=== PATIENT | female | born 1970 | race Caucasian/White ===

== ENCOUNTER 2016-07-15 18:46 | Emergency (ER) ==
[2016-07-15 18:54] VITALS: BP 142/91; TEMP 97; BMI 40.3
--- NOTE | 2016-07-15 19:48 | ED.PDOC ---
General ED Provider: Dr. MARITZA LAM-ER Chief Complaint: Foot Pain/Injury Stated Complaint: my foot has hurt for mos Time Seen by Physician: 19:46 Mode of Arrival: Walk-In Information Source: Patient Exam Limitations: No limitations Nursing and Triage Documentation Reviewed and Agree: Yes Musculoskeletal Complaint Exam - Ankle/Foot Complaint/Exam Location of Injury: Reports: Left, Foot Mechanism of Injury: Reports: No known trauma Onset/Duration: 6mos Symptoms Are: Reports: Still present Onset of Pain: Reports: Immediate Initial Severity: Mild Current Severity: Mild Location: Reports: Discrete (left foot) Character: Reports: Dull, Aching Alleviating: Reports: None Aggravating: Reports: Weight bearing, Prolonged standing Able to Bear Weight: No Associated Signs and Symptoms: Denies: Swelling, Redness, Bruising, Fever, Weakness, Numbness, Tingling Related History: Reports: Similar episode Gout Risk Factors: Reports: None Related Surgical History: Reports: None Lower Extremity Findings: Present: Tenderness Achilles Tendon Abnormality: No Tenderness: Present: Lateral malleolus Differential Diagnosis: Closed Fracture Review of Systems - Review Of Systems Constitutional: Reports: No symptoms Eyes: Reports: No symptoms Ears, Nose, Mouth, Throat: Reports: No symptoms Respiratory: Reports: No symptoms Cardiac: Reports: No symptoms GI: Reports: No symptoms : Reports: No symptoms Musculoskeletal: Reports: No symptoms Skin: Reports: No symptoms Neurological: Reports: No symptoms Endocrine: Reports: No symptoms Hematologic/Lymphatic: Reports: No symptoms All Other Systems: Reviewed and Negative Past Medical History - Past Medical History Previously Healthy: Yes Endocrine: Reports: None, Hypothyroid Cardiovascular: Reports: None Respiratory: Reports: None Hematological: Reports: None Gastrointestinal: Reports: None Genitourinary: Reports: None Neuro/Psych: Reports: None Musculoskeletal: Reports: Arthritis, Back Pain, Joint Pain Cancer: Reports: None Last Menstrual Period: 2007 Other Pertinent Past Medical History: HYSTERECTOMY, RIGHT KNEE, RIGTH ARM, GALLBLADDER, TONSILS THYROID - Surgical History General Surgical History: Reports: None, Hysterectomy, Cholecystectomy, Tonsillectomy, Orthopedic (RIGHT KNEE, RIGTH ARM) - Family History Family History: Reports: None - Social History Smoking Status: Current some day smoker Hx Substance Use: No Alcohol Screening: None Lives: With family - Immunizations Tetanus Shot up to Date: Yes Physical Exam - Physical Exam Appearance: Well-appearing, No pain distress, Well-nourished Pain Distress: Mild Eyes: PRADEEP, EOMI, Conjunctiva clear ENT: Ears normal, Nose normal, Oropharynx normal Neck: Supple Respiratory: Airway patent, Breath sounds clear, Breath sounds equal, Respirations nonlabored Cardiovascular: RRR GI/: Soft, Nontender, No masses, Bowel sounds normal, No Organomegaly Musculoskeletal: Normal strength, ROM intact, No edema, No calf tenderness Skin: Warm, Dry, Normal color Neurological: Sensation intact, Motor intact, Reflexes intact, Cranial nerves intact, Alert, Oriented Psychiatric: Affect appropriate, Mood appropriate Critical Care Note - Critical Care Note Total Time (mins): 0 Course - Course Orders, Labs, Meds: Orders Category Date Time Status FOOT, LEFT 3 VIEWS Stat RADS 07/15/16 19:02 Taken Vital Signs: Temp Pulse Resp BP Pulse Ox 07/15/16 18:47 97 F L 80 20 142/91 H 97 Departure - Departure Time of Disposition: 19:53 Disposition: HOME SELF-CARE Discharge Problem: Chronic foot pain Qualifiers: Laterality: unspecified laterality Qualifier Code: (M79.673) Pain in unspecified foot Instructions: Foot Sprain (ED) Condition: Good Pt referred to PMD for follow-up: Yes Additional Instructions: i suggest going to the orthopedic walk in clinic for further testing, walking boot etc(since you decline crutches today) Allergies/Adverse Reactions: Allergies No Known Allergies Allergy (Verified 07/15/16 18:56) Home Medications: Ambulatory Orders Levothyroxine Sodium [Synthroid] 25 mcg PO DAILY 07/15/16 Disposition Discussed With: Patient
--- NOTE | 2016-07-15 19:58 | DI ---
EXAM: Left foot; PA, lateral, and oblique views HISTORY: Chronic foot pain. COMPARISON: 04/18/2016 FINDINGS: There is no acute fracture or dislocation. A moderate hallux valgus is present with hallux angle measuring approximate 30 degrees. There is mild osteoarthritis at the first MTP joint with j oint space narrowing and marginal osteophytosis. A small plantar enthesiophyte is present. OPINION: No acute osseous abnormality of the foot. Moderate hallux valgus with mild first MTP joint osteoarthritis.
== END 2016-07-15 20:30 | disposition home or self-care (01) ==
LOC: ED 18:46
DX: M79.672 Pain in left foot (principal); F17.210 Nicotine dependence, cigarettes, uncomplicated; G89.29 Other chronic pain
CPT/HCPCS: 99282

== ENCOUNTER 2016-12-20 15:28 | Emergency (ER) ==
[2016-12-20 15:35] VITALS: BP 120/83; TEMP 97.2; BMI 39.4
--- NOTE | 2016-12-20 15:40 | ED.PDOC ---
General ED Provider: Dr. ELLA LAUREN JR Chief Complaint: Tooth Problem Stated Complaint: c/o pain left lower back tooth (molar)[End]3 DAYS AGO 97.2 68 20 97 120/83 01/11 HAS NOT BEEN IN TO SEE PMD REQUEST REFILL THYROID Time Seen by Physician: 15:39 Mode of Arrival: Walk-In Information Source: Patient Exam Limitations: No limitations Nursing and Triage Documentation Reviewed and Agree: No Review of Systems - Review Of Systems Constitutional: Reports: No symptoms, Malaise, Weakness Eyes: Reports: No symptoms Ears, Nose, Mouth, Throat: Reports: Mouth pain All Other Systems: Other Past Medical History - Past Medical History Previously Healthy: Yes Endocrine: Reports: None, Hypothyroid Cardiovascular: Reports: None Respiratory: Reports: None Hematological: Reports: None Gastrointestinal: Reports: None Genitourinary: Reports: None Neuro/Psych: Reports: None Musculoskeletal: Reports: Arthritis, Back Pain, Joint Pain Cancer: Reports: None Last Menstrual Period: 2005 - Surgical History General Surgical History: Reports: None, Hysterectomy, Cholecystectomy, Tonsillectomy, Orthopedic (RIGHT KNEE, RIGTH ARM;RIGHT KNEE SCOPE), Other ( THYROID) - Family History Family History: Reports: None - Social History Smoking Status: Current every day smoker Hx Substance Use: No Alcohol Screening: None - Immunizations Tetanus Shot up to Date: Yes Physical Exam - Physical Exam Appearance: Obese Ill-appearing: Moderate Pain Distress: Moderate Eyes: PRADEEP, EOMI, Conjunctiva clear ENT: Oropharynx normal (LEFT FIRST MOLAR TENDER WITH FOUL TASTE) Neck: Supple Respiratory: Airway patent, Breath sounds clear, Breath sounds equal, Respirations nonlabored Cardiovascular: RRR, Pulses normal, No rub, No murmur Critical Care Note - Critical Care Note Total Time (mins): 0 Course - Course Vital Signs: Temp Pulse Resp BP Pulse Ox 12/20/16 15:28 97.2 F L 68 20 120/83 97 Departure - Departure Time of Disposition: 15:47 Disposition: HOME SELF-CARE Discharge Problem: Toothache Hypothyroid Qualifiers: Hypothyroidism type: unspecified Qualifier Code: (E03.9) Hypothyroidism, unspecified Instructions: Subclinical Hypothyroidism (ED), Toothache (ED) Condition: Good Pt referred to PMD for follow-up: Yes (FOLLOW UP DENTIST FOLLWO UP PMD FOR THYROID) Additional Instructions: FOLLOW UP DENTIST FOLLOW UP PMD FOR THYROID RYAN VK FOR INFECTION NAPROXEN FOR PAIN ONE TIME DOSE OF THYROID REPLACEMENT Prescriptions: Naproxen [Naprosyn] 500 mg PO Q12HR PRN #30 tablet PRN Reason: PAIN Levothyroxine Sodium [Synthroid] 25 mcg PO QDAC #30 tablet Penicillin V Potassium 500 mg PO QID #28 tablet Allergies/Adverse Reactions: Allergies No Known Allergies Allergy (Verified 12/20/16 15:33) Home Medications: Ambulatory Orders Levothyroxine Sodium [Synthroid] 25 mcg PO DAILY 07/15/16 Levothyroxine Sodium [Synthroid] 25 mcg PO QDAC #30 tablet 12/20/16 Naproxen [Naprosyn] 500 mg PO Q12HR PRN #30 tablet 12/20/16 Penicillin V Potassium 500 mg PO QID #28 tablet 12/20/16
== END 2016-12-20 16:07 | disposition home or self-care (01) ==
LOC: ED 15:28
DX: K08.89 Other specified disorders of teeth and supporting structures (principal); E03.9 Hypothyroidism, unspecified; F17.210 Nicotine dependence, cigarettes, uncomplicated; Z79.899 Other long term (current) drug therapy
CPT/HCPCS: 99282

== ENCOUNTER 2017-02-19 12:32 | Outpatient (CLI) ==
[2017-02-19 12:43] LABS: BASOPHILS # (AUTO) 0.1 K/uL (0-0.2); BASOPHILS % (AUTO) 1.1 % (0.0-3.0); EOSINOPHILS # (AUTO) 0.3 K/ul (0.0-0.7); EOSINOPHILS % (AUTO) 4.4 % (0.0-7.0); HEMATOCRIT 39.5 % (37.0-47.0); HEMOGLOBIN 13.3 g/dl (12.0-16.0); IMMATURE GRANULOCYTE % (AUTO) 0.1 % (0.0-5.0); LYMPHOCYTES # (AUTO) 2.9 K/uL (0.60-3.4); LYMPHOCYTES % (AUTO) 38.2 (10.0-50.0); MEAN CORPUSCULAR HEMOGLOBIN 29.8 pg (27.0-31.0); MEAN CORPUSCULAR HGB CONC 33.7 (31.8-35.4); MEAN CORPUSCULAR VOLUME 88.6 fl (81.0-99.0); MONOCYTES # (AUTO) 0.4 K/uL (0.4-2.0); MONOCYTES % (AUTO) 4.7 (0-10); NEUTROPHILS # (AUTO) 3.9 K/ul (2.0-6.9); NEUTROPHILS % (AUTO) 51.5; PLATELET COUNT 284 10^3/uL (140-440); RED BLOOD COUNT 4.46 10^6/ul (4.20-5.40); WHITE BLOOD COUNT 7.48 K/ul (4.6-10.2)
[2017-02-19 13:16] LABS: ALBUMIN 3.4 g/dL (3.4-5.0); ALBUMIN/GLOBULIN RATIO 0.85; ANION GAP 12.2; BILIRUBIN,TOTAL 0.34 mg/dL (0.00-1.20); BUN/CREATININE RATIO 24.73; CALCIUM 8.7 mg/dL (8.2-10.2); CHOL/HDL RATIO 3.3 (4.5-5.5); CREATININE 0.93 mg/dL (0.60-1.30); POTASSIUM 4.2 mmol/L (3.5-5.10); TOTAL PROTEIN 7.4 g/dL (6.4-8.2)
== END 2017-02-19 12:33 | disposition home or self-care (01) ==
LOC: LAB 12:32
PROVIDERS: ATTEND Nurse Practitioner Family
DX: F32.9 Major depressive disorder, single episode, unspecified (principal); K21.9 Gastro-esophageal reflux disease without esophagitis
CPT/HCPCS: 36415; 80053; 80061; 84443; 85025

== ENCOUNTER 2017-04-14 18:49 | Outpatient (CLI) | END 2017-04-14 18:50 | disposition home or self-care (01) | LOC: LAB 18:49 | PROVIDERS: ATTEND Nurse Practitioner Family | DX: E03.9 Hypothyroidism, unspecified (principal) | CPT/HCPCS: 36415; 84443 ==

== ENCOUNTER 2017-04-27 11:45 | Outpatient (CLI) ==
--- NOTE | 2017-04-27 12:37 | US ---
EXAM: Thyroid ultrasound History: Hypothyroidism. Comparison: Thyroid ultrasound 08/10/2012 Technique: Multiple sonographic images through the thyroid gland were obtained. Color duplex Dopple r was used to interrogate vascular flow. Findings: The right lobe of the thyroid measures 5.3 cm x 2.3 cm x 2.6 cm and demonstrates heterogeneous echote xture with a 1.3 cm complex nodule that is not significantly changed. The thyroid isthmus measures 1.2 cm in thickness. The left lobe of the thyroid measures 5.4 cm x 2.5 cm x 2.4 cm and demonstrates heterogeneous echotex ture with a 1.6 cm complex nodule that is not significantly changed. The thyroid gland is not significantly hypervascular. There is a 0.8 cm subcutaneous soft tissue nodu le within the right side of the neck that is probably a sebaceous cyst. Impression: Enlarged heterogeneous thyroid gland with stable nodules not significantly changed in oscar earance compared to the prior study. A sebaceous cyst within the right neck.
--- NOTE | 2017-04-27 13:11 | DI ---
EXAM: Two views of the chest. History: Short of breath Comparison: Chest CT 06/27/2011 Findings: Heart size is within normal limits. No focal consolidation. No appreciable pleural fluid and no pneumothorax. No acute osseous abnormalities. There are calcifications seen projecting over the abdomen on the lateral view which are nonspecific. Impression: No acute cardiopulmonary process.
--- NOTE | 2017-04-28 08:10 | US ---
Examination: Bilateral extremity venous Doppler including venous insufficiency testing HISTORY: Bilateral lower extremity swelling and pain. COMPARISON: None. TECHNIQUE: Multiple sonographic images were obtained of the bilateral lower extremity deep and super ficial venous systems including Doppler analysis was well as analysis with compression, augmentation, and reflux interrogation. FINDINGS: There is no evidence of deep venous thrombosis in the visualized common femoral, profunda femoral, fe moral, or popliteal veins bilaterally. RIGHT LOWER EXTREMITY Right Greater Saphenous Vein: Measures 0.9 cm at the saphenofemoral junction, 0.5 cm in the proximal thigh, 0.3 cm in the mid and distal thigh, 0.2 cm in the proximal calf, 0.1 cm in the midcalf and 0.2 cm in the distal calf. No identified reflux within the right greater saphenous vein. Right Small Saphenous Vein:Measures 0.5 cm at the saphenopopliteal junction, 0.5 cm in the proximal c azam, 0.2 cm in the midcalf, and 0.3 cm in the distal calf. No identified reflux within the right sma ll saphenous vein. LEFT LOWER EXTREMITY Left Greater Saphenous Vein: Measures 0.8 cm at the saphenofemoral junction, 0.4 cm in the proximal t high, 0.3 cm in the mid and distal thigh, 0.2 cm in the proximal and midcalf, and is not visualized i n the distal calf. There is significant reflux within the left greater saphenous vein measuring 1.4 s econds in the proximal thigh. Left Small Saphenous Vein: Measures 0.6 seconds at the saphenopopliteal junction, 0.3 cm in the proxi mal and mid calf and 0.2 cm in the distal calf. No identified reflux within the left small saphenous vein. No identified variants such as a communicating branch between the GSV and SSV (vein of Giacomini) or an anterior accessory saphenous vein. IMPRESSION: 1. LEFT greater saphenous vein significant venous reflux measuring 1.4 seconds in the proximal thigh . 2. No sonographic findings to suggest venous reflux in the right greater saphenous vein or bilateral small saphenous veins. If concomitant clinical symptoms of the LEFT greater saphenous vein may benefit from endovenous thera py. Pathologic reflux is typically defined as reversal of flow greater than 500 milliseconds. Of note GSV diameter of greater than 0.5cm and SSV diameter of greater than 0.35cm have high positive predictive values for reflux.
== END 2017-04-27 11:46 | disposition home or self-care (01) ==
LOC: RAD 11:45
PROVIDERS: ATTEND Nurse Practitioner Family
DX: E03.9 Hypothyroidism, unspecified (principal); M79.604 Pain in right leg; M79.605 Pain in left leg; R06.02 Shortness of breath

== ENCOUNTER 2017-08-11 16:01 | Outpatient (CLI) ==
--- NOTE | 2017-08-11 16:44 | DI ---
EXAM: PA and lateral views of the chest HISTORY: Tobacco use COMPARISON: Chest x-ray 04/27/2017 and CTA chest 06/27/2011 FINDINGS: The cardiomediastinal silhouette is normal. There is no pneumothorax or pleural effusion. There is no consolidation, nodule or mass. The osseous structures are stable. IMPRESSION: No acute cardiopulmonary process
--- NOTE | 2017-08-11 16:45 | DI ---
Exam: Three x-rays of the left foot. Comparison: 07/15/2016. Reason for exam: Pain. FINDINGS: No acute fracture or dislocation. There is similar appearing hallus valgus in the first p halanx. The joint spaces are relatively well maintained. No suspicious appearing soft tissue density or radiopaque retained foreign body. Impression: No acute fracture or dislocation in the left foot with mild to moderate hallus valgus.
--- NOTE | 2017-08-11 16:47 | DI ---
Exam: Right knee four views History: Knee pain Findings / impression: No acute bony or articular abnormalities. The joint effusion. Marginal oste ophytosis of the patellofemoral joint indicating early osteoarthritic change.
== END 2017-08-11 16:02 | disposition home or self-care (01) ==
LOC: RAD 16:01
PROVIDERS: ATTEND Nurse Practitioner Family
DX: M79.672 Pain in left foot (principal); M25.561 Pain in right knee; E03.9 Hypothyroidism, unspecified; M79.604 Pain in right leg; M79.605 Pain in left leg; E66.9 Obesity, unspecified; Z72.0 Tobacco use
CPT/HCPCS: 36415; 80053; 80061; 84439; 84443; 85025

== ENCOUNTER 2017-08-23 12:58 | Outpatient (CLI) | END 2017-08-23 12:59 | disposition home or self-care (01) | LOC: CAR 12:58 | PROVIDERS: ATTEND Nurse Practitioner Family | DX: E03.9 Hypothyroidism, unspecified (principal); E66.9 Obesity, unspecified | CPT/HCPCS: 93005; 93010 ==

== ENCOUNTER 2017-08-27 06:44 | Outpatient (CLI) ==
--- NOTE | 2017-08-27 09:11 | STRESSECHO ---
Date of Test: 08/27/17 Reason for Exam: ABNORMAL EKG, SOB Ordering Physician: GI NUNEZ APRN Current Medications: LEVOTHYROXINE, TRAMADOL Physical Findings: S1, S2, NO S3, NO MURMUR Resting EKG: SINUS RHYTHM, NO ACUTE CHANGES Target Heart Rate: 147/174 S-T SEGMENT STAGE MPH/GRADE HEART RATE BPM BLOOD PRESSURE MMHG RHYTHM 0 +/- ELEVATION DEPRESSION SYMPTOMS,COMMENTS At Rest 56 128/60 SR X NO COMMENTS 1 1.7/10% 122 140/89 SR X NO COMMENTS 2 2.5/12% 152/80 SR X NO COMMENTS 3 3.4/14% 4 4.2/16% 5 5.0/18% Immediately after 160 160/72 SR X SHORT OF BREATH Durations of Exercise: 6:24 Maximum Heart Rate Reached: 160 Reason for Termination: SHORT OF BREATH 4 MINUTES POST EXERCISE: HR 78 BPM, BP 130/64 MMHG, SINUS RHYTHM, ST-T WAVE +/- , NO COMMENTS INTERPRETATION: 97% OXYGEN SATURATION ON ROOM AIR METS 8.1 1. NO EVIDENCE OF ISCHEMIA BY ST-T WAVE 2. NO CHEST PAIN OR CHEST DISCOMFORT 3. BLOOD PRESSURE RESPONSE: NORMAL AT REST AND WITH EXERCISE 4. FEW PAC'S WITH EXERCISE NORMAL LEFT VENTRICULAR CONTRACTILITY--RESTING AND POST EXERCISE MTDD
--- NOTE | 2017-08-27 09:15 | ECHOSTRESS ---
Date of Exam: 08/27/17 Ordering Physician: GI NUNEZ APRN Reason for Echo: ABNORMAL EKG, STRESS TEST--NO ISCHEMIA M-Mode Normal Adult Results LV Dimensions Normal Adult Results AoV Opening excursions >1.6 LVEDD-base- 3.5-5.8 Ao root dimensions 2.0-3.7 LVESD-base- 3.1-4.6 L. Atrium dimensions 1.9-3.8 Post. Wall thickness 0.8-1.1 IV septum (thickness) 0.7-1.2 Post. Wall excursion 0.72-1.3 Septal motion Systolic motion R. Ventricular cavity 1.5-2.0 LVEF 60% Paradoxical septal wall motion 2-D: NORMAL LEFT VENTRICULAR CONTRACTILITY--RESTING AND POST EXERCISE M-MODE: MV: AV: TV: PV: CHAMBER SIZE: WALL MOTION: NORMAL LEFT VENTRICULAR CONTRACTILITY--RESTING AND POST EXERCISE PERICARDIUM: INTERPRETATION: 1. NORMAL LEFT VENTRICULAR CONTRACTILITY--RESTING AND POST EXERCISE MTDD
== END 2017-08-27 06:45 | disposition home or self-care (01) ==
LOC: CAR 06:44
PROVIDERS: ATTEND Nurse Practitioner Family
DX: R94.31 Abnormal electrocardiogram [ECG] [EKG] (principal)